=== PATIENT | female | born 1975 | race Caucasian/White ===

== ENCOUNTER 2024-05-09 20:58 | Emergency (ER) | payer MEDICAID ==
[~2024-05-09] VITALS: Ht 167.6 cm; Wt 36.3 kg
[2024-05-09] MEDS ORDERED: LORAZEPAM 1 MG TABLET ONE (21:39)
[2024-05-09] MEDS: LORAZEPAM 0.5 MG TABLET PO ONE (21:40)
[2024-05-09 22:02] LABS: BASOPHILS % (AUTO) 0.5 % (0.0-2.0); EOSINOPHILS # (AUTO) 0.1 K/uL (0.0-0.7); EOSINOPHILS % (AUTO) 0.8 % (0.0-7.0); HEMATOCRIT 43.6 % (31.2-41.9); HEMOGLOBIN 14.5 g/dL (10.9-14.3); LYMPHOCYTES # (AUTO) 2.2 K/uL (0.8-4.8); LYMPHOCYTES % (AUTO) 27.1 % (20.5-51.5); MEAN CORPUSCULAR HEMOGLOBIN 28.2 uug (24.7-32.8); MEAN CORPUSCULAR HGB CONC 33 g/dL (32.3-35.6); MONOCYTES # (AUTO) 0.5 K/uL (0.1-1.30); MONOCYTES % (AUTO) 5.9 % (0.0-11.0); NEUTROPHILS # (AUTO) 5.3 K/uL (1.8-8.9); NEUTROPHILS % (AUTO) 65.7 % (38.5-71.5); PLATELET COUNT (AUTO) 321 K/uL (179-408); RED BLOOD CELL COUNT(AUTO) 5.13 MIL/uL (3.63-4.92); RED CELL DISTRIBUTION WIDTH 14.9 % (12.3-17.7); WHITE BLOOD COUNT (AUTO) 8.1 K/uL (3.8-11.8)
[2024-05-09 22:07] LABS: DIFFERENTIAL COMMENT 1
[2024-05-09 22:12] LABS: *URINE HCG, QUAL NEGATIVE (NEGATIVE); CALCIUM 9.6 mg/dL (8.5-10.1); CREATININE 0.8 mg/dL (0.6-1.3); POTASSIUM 3.2 mmol/L (3.5-5.1)
[2024-05-09 22:17] LABS: ALBUMIN 3.7 g/dL (3.4-5.0); BILIRUBIN,TOTAL 0.3 mg/dL (0.2-1.0); TOTAL PROTEIN, SERUM 8.3 g/dL (6.4-8.2)
[2024-05-09] MEDS ORDERED: POTASSIUM CHLORIDE 20 MEQ TAB.PRT.SR ONE (22:29)
[2024-05-09] MEDS: POTASSIUM CHLORIDE 20 MEQ TAB.PRT.SR PO ONE (22:29)
[2024-05-09 22:37] LABS: *AMPHETAMINE, URINE NEGATIVE (NEGATIVE); *BARBITURATE, URINE NEGATIVE (NEGATIVE); *BENZODIAZEPINE, URINE POSITIVE (NEGATIVE); *CANNABINOID, URINE NEGATIVE (NEGATIVE); *COCCAINE, URINE NEGATIVE (NEGATIVE); *OPIATE, URINE NEGATIVE (NEGATIVE); *PHENCYCLIDINE SCREEN,URINE NEGATIVE (NEGATIVE); FENTANYL, URINE NEGATIVE (NEGATIVE)
[2024-05-09 23:27] VITALS: BP 137/50; TEMP 98.6; O2SAT 99
== END 2024-05-09 23:27 | disposition home or self-care (01) ==
LOC: ER 21:00
DX: F41.9 Anxiety disorder, unspecified (principal); R25.1 Tremor, unspecified; E03.9 Hypothyroidism, unspecified; R10.2 Pelvic and perineal pain; Z98.890 Other specified postprocedural states
CPT/HCPCS: 36415; 84703; 85025; 93005; A4606; A4663

== ENCOUNTER 2024-05-16 05:53 | Emergency (ER) | payer MEDICAID ==
[~2024-05-16] VITALS: Ht 167.6 cm; Wt 80.7 kg
[2024-05-16] MEDS ORDERED: LORA0.5T48 PO ×2 (06:11→09:11)
[2024-05-16 07:27] LABS: BASOPHILS # (AUTO) 0.1 K/UL (0.0-0.2); BASOPHILS % (AUTO) 0.6 % (0.0-2.0); EOSINOPHILS # (AUTO) 0.2 K/uL (0.0-0.7); EOSINOPHILS % (AUTO) 2.4 % (0.0-7.0); HEMATOCRIT 39.8 % (31.2-41.9); HEMOGLOBIN 13.4 g/dL (10.9-14.3); LYMPHOCYTES # (AUTO) 2.6 K/uL (0.8-4.8); LYMPHOCYTES % (AUTO) 31.4 % (20.5-51.5); MEAN CORPUSCULAR HEMOGLOBIN 28.5 uug (24.7-32.8); MEAN CORPUSCULAR HGB CONC 34 g/dL (32.3-35.6); MEAN CORPUSCULAR VOLUME 84.6 fL (75.5-95.3); MONOCYTES # (AUTO) 0.5 K/uL (0.1-1.30); MONOCYTES % (AUTO) 5.5 % (0.0-11.0); NEUTROPHILS % (AUTO) 60.1 % (38.5-71.5); PLATELET COUNT (AUTO) 292 K/uL (179-408); RED CELL DISTRIBUTION WIDTH 14.9 % (12.3-17.7); WHITE BLOOD COUNT (AUTO) 8.4 K/uL (3.8-11.8)
[2024-05-16] MEDS ORDERED: LORAZEPAM 1 MG TABLET ONE (07:28)
[2024-05-16] MEDS: LORAZEPAM 0.5 MG TABLET PO ONE (07:35)
[2024-05-16 07:37] LABS: DIFFERENTIAL COMMENT 1
[2024-05-16 07:45] LABS: CALCIUM 9.2 mg/dL (8.5-10.1); CREATININE 0.7 mg/dL (0.6-1.3)
[2024-05-16 08:16] LABS: ALBUMIN 3.8 g/dL (3.4-5.0); BILIRUBIN,TOTAL 0.4 mg/dL (0.2-1.0)
[2024-05-16] MEDS ORDERED: POTASSIUM BICARBONATE/CIT AC 25 MEQ TABLET.EFF ONE (08:35)
[2024-05-16] MEDS: POTASSIUM BICARBONATE/CIT AC 25 MEQ TABLET.EFF PO ONE (08:56)
[2024-05-16] MEDS ORDERED: FLAS1EAC2 TP (09:12)
[2024-05-16] MEDS ORDERED: FLAS1KIT2 TP (09:12)
[2024-05-16 09:15] VITALS: O2SAT 98
== END 2024-05-16 09:31 | disposition home or self-care (01) ==
LOC: ER 05:55
DX: F41.0 Panic disorder [episodic paroxysmal anxiety] (principal); R06.4 Hyperventilation; G62.9 Polyneuropathy, unspecified; E87.6 Hypokalemia; E03.9 Hypothyroidism, unspecified; Z79.899 Other long term (current) drug therapy; Z98.890 Other specified postprocedural states; Z88.0 Allergy status to penicillin; Z88.1 Allergy status to other antibiotic agents
CPT/HCPCS: 36415; 83735; 85025; A4606; A4663

== ENCOUNTER 2024-11-12 13:20 | Inpatient (IN) | payer MEDICAID ==
[~2024-11-12] VITALS: Ht 167.6 cm; Wt 85.7 kg
[~2024-11-12 13:20] MED LIST: FLAS1EAC2 TP; FLAS1KIT2 TP; LORA0.5T48 PO
[2024-11-12 13:50] LABS: BASOPHILS # (AUTO) 0.1 K/UL (0.0-0.2); EOSINOPHILS # (AUTO) 0.1 K/uL (0.0-0.7); EOSINOPHILS % (AUTO) 1.3 % (0.0-7.0); HEMATOCRIT 41.2 % (31.2-41.9); HEMOGLOBIN 13.8 g/dL (10.9-14.3); LYMPHOCYTES # (AUTO) 2.7 K/uL (0.8-4.8); LYMPHOCYTES % (AUTO) 36.3 % (20.5-51.5); MEAN CORPUSCULAR HEMOGLOBIN 28.2 uug (24.7-32.8); MEAN CORPUSCULAR HGB CONC 34 g/dL (32.3-35.6); MEAN CORPUSCULAR VOLUME 84.3 fL (75.5-95.3); MONOCYTES # (AUTO) 0.4 K/uL (0.1-1.30); MONOCYTES % (AUTO) 5.7 % (0.0-11.0); NEUTROPHILS # (AUTO) 4.1 K/uL (1.8-8.9); NEUTROPHILS % (AUTO) 55.7 % (38.5-71.5); PLATELET COUNT (AUTO) 307 K/uL (179-408); RED BLOOD CELL COUNT(AUTO) 4.89 MIL/uL (3.63-4.92); RED CELL DISTRIBUTION WIDTH 14.2 % (12.3-17.7); WHITE BLOOD COUNT (AUTO) 7.3 K/uL (3.8-11.8)
[2024-11-12] MEDS ORDERED: IOHEXOL 350 100 ML INFUS..BTL ONE (13:50)
[2024-11-12] MEDS ORDERED: SWABABLE VALVE TRANSFER SET EA MC ONE (13:50)
[2024-11-12] MEDS ORDERED: IV NORMAL SALINE 250 ML IV ONE (13:50)
[2024-11-12 13:52] LABS: CALCIUM 9.2 mg/dL (8.5-10.1); CREATININE 0.7 mg/dL (0.6-1.3); POTASSIUM 3.8 mmol/L (3.5-5.1)
[2024-11-12] MEDS ORDERED: LEVO50TA8 PO (14:01)
[2024-11-12] MEDS: diphenhydrAMINE 50 MG/1 ML VIAL IV ONE (14:58)
[2024-11-12] MEDS: ACETAMINOPHEN 500 MG TABLET PO ONE (14:58)
[2024-11-12] MEDS: IV NORMAL SALINE 1000 ML BAG IV ONE (14:58)
[2024-11-12] MEDS: VALPROATE SODIUM 500 MG/5 ML VIAL IV ONE (14:59)
[2024-11-12] MEDS: METOCLOPRAMIDE HCL 10 MG/2 ML VIAL IV ONE (14:59)
[2024-11-12 15:28] LABS: *BILIRUBIN,URIN NEGATIVE (NEGATIVE); *BLOOD, URINE NEGATIVE (NEGATIVE); *CLARITY,URINE CLEAR (CLEAR); *COLOR,URINE YELLOW (YELLOW); *KETONES,URINE NEGATIVE (NEGATIVE); *PROTEIN,URINE NEGATIVE (NEGATIVE); *UROBILINOGEN,URINE 0.2 E.U./dl (NORMAL); LEUKOCYTE ESTERASE ,URINE NEGATIVE (NEGATIVE); NITRITE, URINE NEGATIVE (NEGATIVE); UGLUCOSE NEGATIVE (NEGATIVE)
[2024-11-12 18:25] VITALS: BP 98/45; TEMP 98.3; O2SAT 97
[2024-11-12] MEDS ORDERED: CHOL500050 PO (18:49)
[2024-11-12] MEDS ORDERED: CYAN100T44 PO (18:49)
[2024-11-12] MEDS ORDERED: PYRI-6 PO (18:49)
[2024-11-12] MEDS ORDERED: ERGO400C PO (18:49)
[2024-11-12] MEDS ORDERED: OMEG-49 PO (18:49)
[2024-11-12] MEDS ORDERED: VALPROATE SODIUM IV 500 MG in IV DEXTROSE 5% 100 ML IV ONE (19:15)
[2024-11-12 19:50] VITALS: BP 131/68; TEMP 97.7; O2SAT 98
[2024-11-12] MEDS ORDERED: ACETAMINOPHEN 325 MG TABLET PO PRN (20:00)
[2024-11-12] MEDS ORDERED: MAGNESIUM HYDROXIDE 30 ML LIQUID UDC PO PRN (20:00)
[2024-11-12] MEDS ORDERED: ONDANSETRON 4 MG/2 ML VIAL IV PRN (20:00)
[2024-11-12] MEDS ORDERED: TEMAZEPAM 15 MG CAPSULE PO PRN (20:00)
[2024-11-13 00:26] VITALS: BP 105/60; TEMP 98.6; O2SAT 100
[2024-11-13 04:48] VITALS: BP 97/53; TEMP 98; O2SAT 96
[2024-11-13] MEDS: PANTOPRAZOLE SODIUM 40 MG TABLET.DR PO SCH (06:18)
[2024-11-13] MEDS: LEVOTHYROXINE SODIUM 50 MCG TABLET PO SCH (06:18)
[2024-11-13 06:49] LABS: BASOPHILS % (AUTO) 0.7 % (0.0-2.0); EOSINOPHILS # (AUTO) 0.1 K/uL (0.0-0.7); EOSINOPHILS % (AUTO) 1.7 % (0.0-7.0); HEMATOCRIT 39.5 % (31.2-41.9); HEMOGLOBIN 13.4 g/dL (10.9-14.3); LYMPHOCYTES # (AUTO) 2.6 K/uL (0.8-4.8); LYMPHOCYTES % (AUTO) 42.1 % (20.5-51.5); MEAN CORPUSCULAR HEMOGLOBIN 28.5 uug (24.7-32.8); MEAN CORPUSCULAR HGB CONC 34 g/dL (32.3-35.6); MEAN CORPUSCULAR VOLUME 84.2 fL (75.5-95.3); MONOCYTES # (AUTO) 0.4 K/uL (0.1-1.30); MONOCYTES % (AUTO) 5.9 % (0.0-11.0); NEUTROPHILS # (AUTO) 3.1 K/uL (1.8-8.9); NEUTROPHILS % (AUTO) 49.6 % (38.5-71.5); PLATELET COUNT (AUTO) 287 K/uL (179-408); RED BLOOD CELL COUNT(AUTO) 4.69 MIL/uL (3.63-4.92); RED CELL DISTRIBUTION WIDTH 13.8 % (12.3-17.7); WHITE BLOOD COUNT (AUTO) 6.3 K/uL (3.8-11.8)
[2024-11-13 07:06] LABS: IRON, SERUM 99 ug/dL (50-175)
[2024-11-13 07:08] LABS: ALANINE AMINOTRANSFERASE 21 U/L (14-59); ALBUMIN 3.2 g/dL (3.4-5.0); ALKALINE PHOSPHATASE 73 U/L (50-136); ASPARTATE AMINOTRANSFERASE 15 U/L (15-37); BILIRUBIN,TOTAL 0.4 mg/dL (0.2-1.0); CALCIUM 9.1 mg/dL (8.5-10.1); CARBON DIOXIDE 26 mmol/L (21-32); CHLORIDE 108 mmol/L (98-107); CREATININE 0.7 mg/dL (0.6-1.3); GLUCOSE 89 mg/dL (74-106); MAGNESIUM 2.1 mg/dL (1.8-2.4); PHOSPHOROUS 3.3 mg/dL (2.5-4.9); POTASSIUM 3.9 mmol/L (3.5-5.1); SODIUM SERUM 142 mmol/L (136-145); TOTAL PROTEIN, SERUM 7.2 g/dL (6.4-8.2); UREA NITROGEN, BLOOD 11 mg/dL (7-18)
[2024-11-13 07:26] LABS: THYROID STIMULATING HORMONE 2.775 mIU/mL (0.358-3.740)
[2024-11-13 07:41] VITALS: BP 98/52; TEMP 97.9; O2SAT 96
[2024-11-13 08:04] LABS: CHOLESTEROL 218 mg/dL (<200); HDL CHOLESTEROL 53 mg/dL (40-60); TRIGLYCERIDES 94 MG/DL (30-150)
[2024-11-13] MEDS ORDERED: ERGOCALCIFEROL 50,000 UNIT CAPSULE PO SCH (09:00)
[2024-11-13] MEDS: CHOLECALCIFEROL 400 UNITS TABLET PO SCH (10:15)
[2024-11-13] MEDS: ASPIRIN EC 81 MG TABLET.DR PO SCH (10:15)
[2024-11-13] MEDS: OMEGA-3 FATTY ACIDS/FISH OIL CAPSULE PO SCH ×2 (10:15→16:29)
[2024-11-13] MEDS: LORAZEPAM 0.5 MG TABLET PO PRN (10:20)
[2024-11-13] MEDS ORDERED: CHOL250C2 PO (13:35)
[2024-11-13 15:31] LABS: THYROID STIMULATING HORMONE 2.488 mIU/mL (0.358-3.740)
[2024-11-13 15:40] VITALS: BP 100/62; TEMP 98.3; O2SAT 98
[2024-11-13] MEDS: PYRIDOXINE HCL 100 MG TABLET PO SCH (16:30)
[2024-11-13] MEDS: CLOPIDOGREL 75 MG TABLET PO SCH (18:42)
[2024-11-13 19:40] VITALS: BP 108/63; TEMP 97.5; O2SAT 97
[2024-11-13] MEDS: DOCUSATE SODIUM 100 MG CAPSULE PO SCH (20:57)
[2024-11-14 00:27] VITALS: BP 101/62; TEMP 97.9; O2SAT 97
[2024-11-14 05:43] VITALS: BP 100/55; TEMP 98.3; O2SAT 95
[2024-11-14 07:32] VITALS: BP 103/62; TEMP 97.5; O2SAT 96
[2024-11-14] MEDS ORDERED: PATIENT MAY USE OWN MED- MD OK PO SCH (09:00)
[2024-11-14 10:44] VITALS: BP 109/54; TEMP 97.6; O2SAT 96
[2024-11-14] MEDS ORDERED: LORAZEPAM 2 MG/1 ML VIAL IV ONE (15:45)
[2024-11-14] MEDS ORDERED: CLOP75TA33 PO (18:02)
[2024-11-14] MEDS ORDERED: ACET325T53 PO (18:02)
[2024-11-14] MEDS ORDERED: ASPI-618 PO (18:02)
[2024-11-14] MEDS ORDERED: PANT40TA49 PO (18:02)
== END 2024-11-14 19:35 | disposition home or self-care (01) | DRG 45 ==
LOC: ER 13:20 → TRANSITION 17:24 → TELE3 18:00 → MEDSURG3 11-14 10:15
PROVIDERS: ADMIT Internal Medicine; ATTEND Internal Medicine
DX: I63.9 Cerebral infarction, unspecified (principal); G81.94 Hemiplegia, unspecified affecting left nondominant side; J98.59 Other diseases of mediastinum, not elsewhere classified; R29.707 NIHSS score 7; E03.9 Hypothyroidism, unspecified; G43.109 Migraine with aura, not intractable, without status migrainosus; E78.5 Hyperlipidemia, unspecified; Z88.0 Allergy status to penicillin; Z68.30 Body mass index [BMI] 30.0-30.9, adult; E66.9 Obesity, unspecified; G62.9 Polyneuropathy, unspecified; H53.8 Other visual disturbances; R20.0 Anesthesia of skin; Z53.29 Procedure and treatment not carried out because of patient's decision for other reasons; F40.240 Claustrophobia; F41.0 Panic disorder [episodic paroxysmal anxiety]; Z82.49 Family history of ischemic heart disease and other diseases of the circulatory system; Z90.49 Acquired absence of other specified parts of digestive tract; Z98.891 History of uterine scar from previous surgery; Z79.890 Hormone replacement therapy; Z88.8 Allergy status to other drugs, medicaments and biological substances; Z79.82 Long term (current) use of aspirin
CPT/HCPCS: 36415; 70450; 70496; 71045; 83550; 83735; 83921; 84100; 84443; 84484; 85025; 85730; A4663; A9150; G0378; J1200; J2765; J3490; J7040; Q9967